=== PATIENT | female | born 2000 | race American Indian/Alaskan Native ===

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

== ENCOUNTER 2021-06-02 02:08 | Emergency (ER) | payer SELFPAY ==
[2021-06-02 03:02] VITALS: BP 105/68
--- NOTE | 2021-06-02 03:03 | Emergency Department Report ---
- General Chief Complaint: Wound/Laceration Stated Complaint: HEAD INJURY Source: patient Mode of arrival: Ambulatory Limitations: No Limitations - History of Present Illness Initial Comments: Patient is a nulliparous 20-year-old -[place] female with no past medical history presents to the ED with complaint of acute onset persistent bleeding painful right parietal scalp laceration wound after she tripped when going up the stairs and hit her head against the sharp edge of the door at home about 1 hour prior to arrival in the ED. Patient states that the bleeding at the moment is well controlled but at the beginning it was heavy and persistent. Patient states that she is up-to-date with all her tetanus vaccinations. Patient denies loss of consciousness, dizziness, syncope, seizures, shortness of breath, change in vision, nausea and vomiting, neck pain or fall. -: Sudden, hour(s) (1) Location: scalp (right parietal scalp small laceration) Place: home Patient Tetanus UTD: Yes Context: accidental, sharp object use Associated Symptoms: pain. denies: loss of feeling/numbness, suspect foreign body present, unable to move injured part, weakness followed by dizziness, nausea/vomiting, fever Treatments Prior to Arrival: cold therapy - Related Data Previous Rx's Medication Instructions Recorded Last Taken Type traMADoL [Ultram 50 MG tab] 50 mg PO Q6HR PRN #15 tablet 07/07/14 Unknown Rx Dicyclomine [Bentyl] 10 mg PO QID PRN #20 capsule 02/11/16 Unknown Rx Famotidine [Pepcid] 20 mg PO BID #10 tablet 02/11/16 Unknown Rx Ondansetron [Zofran Odt] 4 mg PO QID PRN #20 tab.rapdis 02/11/16 Unknown Rx Acetaminophen 500 mg PO Q8H PRN #30 capsule 09/05/17 Unknown Rx Albuterol Mdi (or & Nicu Only) 2 puff IH QID PRN #1 inhalation 09/05/17 Unknown Rx [ProAir HFA Inhaler] Azithromycin [Zithromax Z-SABI] 500 mg PO QDAY #6 tablet 09/05/17 Unknown Rx Ondansetron [Zofran Odt] 4 mg PO Q8HR PRN #12 tab.rapdis 09/05/17 Unknown Rx Phenylephrine/Dm/Acetaminop/GG 10 ml PO Q6H PRN #1 liquid 09/05/17 Unknown Rx [Mucinex Ocou-Gxk-Xbicmxaelz Lq] metroNIDAZOLE [Flagyl] 500 mg PO Q12HR #14 tab 03/18/18 Unknown Rx Prednisone [predniSONE 10 mg 10 mg PO .TAPER #1 tab.ds.pk 04/16/18 Unknown Rx (6-Day Pack, 21 Tabs)] diphenhydrAMINE [Benadryl CAP] 25 mg PO Q6HR PRN #20 capsule 04/16/18 Unknown Rx EPINEPHrine [Epipen 2-Sabi] 0.3 mg IM DAILY PRN #2 ml 04/24/18 Unknown Rx Famotidine [Pepcid] 20 mg PO BID #10 tablet 04/24/18 Unknown Rx Ondansetron [Zofran Odt] 4 mg PO Q8HR PRN #10 tab.rapdis 11/04/18 Unknown Rx Promethazine [Phenergan] 25 mg PO Q6HR PRN #10 tab 11/04/18 Unknown Rx Ibuprofen [Motrin 600 MG tab] 600 mg PO Q8H PRN #30 tablet 06/02/21 Unknown Rx cephALEXin [Keflex] 500 mg PO Q12HR #20 cap 06/02/21 Unknown Rx Allergies Allergy/AdvReac Type Severity Reaction Status Date / Time No Known Allergies Allergy Verified 11/04/18 12:47 ED Review of Systems ROS: Stated complaint: HEAD INJURY Other details as noted in HPI Constitutional: denies: chills, fever Eyes: denies: eye pain, eye discharge, vision change ENT: denies: ear pain, throat pain Respiratory: denies: cough, shortness of breath, wheezing Cardiovascular: denies: chest pain, palpitations Endocrine: no symptoms reported Gastrointestinal: denies: abdominal pain, nausea, vomiting, diarrhea Genitourinary: denies: urgency, dysuria, discharge Musculoskeletal: denies: back pain, joint swelling, arthralgia Skin: other (Bleeding small puncture wound on the right parietal scalp with localized tenderness). denies: rash, lesions Neurological: denies: headache, weakness, paresthesias Psychiatric: anxiety. denies: depression Hematological/Lymphatic: denies: easy bleeding, easy bruising ED Past Medical Hx - Past Medical History Previous Medical History?: No - Surgical History Past Surgical History?: No - Social History Smoking Status: Never Smoker Substance Use Type: None - Medications Home Medications: Home Medications Medication Instructions Recorded Confirmed Last Taken Type traMADoL [Ultram 50 MG tab] 50 mg PO Q6HR PRN #15 tablet 07/07/14 Unknown Rx Dicyclomine [Bentyl] 10 mg PO QID PRN #20 capsule 02/11/16 Unknown Rx Famotidine [Pepcid] 20 mg PO BID #10 tablet 02/11/16 Unknown Rx Ondansetron [Zofran Odt] 4 mg PO QID PRN #20 tab.rapdis 02/11/16 Unknown Rx Acetaminophen 500 mg PO Q8H PRN #30 capsule 09/05/17 Unknown Rx Albuterol Mdi (or & Nicu Only) 2 puff IH QID PRN #1 inhalation 09/05/17 Unknown Rx [ProAir HFA Inhaler] Azithromycin [Zithromax Z-SABI] 500 mg PO QDAY #6 tablet 09/05/17 Unknown Rx Ondansetron [Zofran Odt] 4 mg PO Q8HR PRN #12 tab.rapdis 09/05/17 Unknown Rx Phenylephrine/Dm/Acetaminop/GG 10 ml PO Q6H PRN #1 liquid 09/05/17 Unknown Rx [Mucinex Coxt-Tak-Dmhshrlrvz Lq] metroNIDAZOLE [Flagyl] 500 mg PO Q12HR #14 tab 03/18/18 Unknown Rx Prednisone [predniSONE 10 mg 10 mg PO .TAPER #1 tab.ds.pk 04/16/18 Unknown Rx (6-Day Pack, 21 Tabs)] diphenhydrAMINE [Benadryl CAP] 25 mg PO Q6HR PRN #20 capsule 04/16/18 Unknown Rx EPINEPHrine [Epipen 2-Sabi] 0.3 mg IM DAILY PRN #2 ml 04/24/18 Unknown Rx Famotidine [Pepcid] 20 mg PO BID #10 tablet 04/24/18 Unknown Rx Ondansetron [Zofran Odt] 4 mg PO Q8HR PRN #10 tab.rapdis 11/04/18 Unknown Rx Promethazine [Phenergan] 25 mg PO Q6HR PRN #10 tab 11/04/18 Unknown Rx Ibuprofen [Motrin 600 MG tab] 600 mg PO Q8H PRN #30 tablet 06/02/21 Unknown Rx cephALEXin [Keflex] 500 mg PO Q12HR #20 cap 06/02/21 Unknown Rx ED Physical Exam - General Limitations: No Limitations General appearance: alert, in no apparent distress - Head Head exam: Present: other (Palpable localized tenderness on right parietal scalp due to a small bleeding 1 cm puncture wound) - Eye Eye exam: Present: normal appearance, PERRL, EOMI Pupils: Present: normal accommodation - ENT ENT exam: Present: normal exam, normal orophraynx, mucous membranes moist, TM's normal bilaterally, normal external ear exam - Neck Neck exam: Present: normal inspection, full ROM - Respiratory Respiratory exam: Present: normal lung sounds bilaterally. Absent: respiratory distress, wheezes, rales, rhonchi, stridor, chest wall tenderness, accessory muscle use, decreased breath sounds, prolonged expiratory - Cardiovascular Cardiovascular Exam: Present: regular rate, normal rhythm, normal heart sounds. Absent: systolic murmur, diastolic murmur, rubs, gallop - GI/Abdominal GI/Abdominal exam: Present: soft, normal bowel sounds. Absent: tenderness, guarding, hyperactive bowel sounds, hypoactive bowel sounds - Extremities Exam Extremities exam: Present: normal inspection, full ROM, normal capillary refill - Back Exam Back exam: Present: normal inspection, full ROM. Absent: tenderness, CVA tenderness (R), CVA tenderness (L), muscle spasm, paraspinal tenderness - Neurological Exam Neurological exam: Present: alert, oriented X3, CN II-XII intact, normal gait, reflexes normal - Psychiatric Psychiatric exam: Present: normal affect, normal mood, anxious - Skin Skin exam: Present: warm, dry, intact, normal color, other (Bleeding 1 cm small puncture wound on the right parietal scalp with localized tenderness). Absent: rash - Laceration /Wound Repair Right Parietal Wound Location: head (Right parietal scalp laceration) Wound's Depth, Shape: superficial (1) Wound Explored: contaminated Irrigated w/ Saline (ccs): 200 Betadine Prep?: No Wound Debrided: extensive Wound Repaired With: sutures (Naheed, a total of 2) Layer Closure?: No Sterile Dressing Applied?: Yes Progress: The small puncture wound was cleaned thoroughly with normal saline and extensively debrided. The wound was closed with 2 naheed and the patient tolerated the procedure well. Patient was there after treated for pain with ibuprofen. Patient was discharged home on pain medications and prophylactic antibiotics and advised to follow-up with her primary care physician in 7 to 10 days for reevaluation. Patient is advised to return to the ED immediately if symptoms get worse or return to the ED or to her primary care physician in 8 to 10 days for naheed removal ED Medical Decision Making - Medical Decision Making This is a nulliparous 20-year-old -[place] female with no past medical history presents to the ED with complaint of acute onset persistent bleeding painful right parietal scalp laceration wound after she tripped when going up the stairs and hit her head against the sharp edge of the door at home about 1 h our prior to arrival in the ED. Patient states that the bleeding at the moment is well controlled but at the beginning it was heavy and persistent. Patient states that she is up-to-date with all her tetanus vaccinations. In the ED, patient is alert and oriented x3 and is not in any distress but appears to be in pain and anxious. Patient is hemodynamically stable. Patient was treated for pain in the ED and the right parietal scalp bleeding laceration was cleaned extensively with normal saline and stapled per protocol. Patient tolerated procedure well. On reevaluation, patient's pain is well controlled medications. Patient is hemodynamically stable, ambulatory in the ED, talking on the phone with her friends and laughing. Patient will discharge home on pain medication and prophylactic antibiotics and advised to follow-up with her primary care physician in 7 to 10 days for reevaluation or return to the ED immediately if symptoms get worse. Patient was also advised return to the ED or to her primary care physician in 8 to 10 days for naheed removal. - Differential Diagnosis Puncture wound; scalp laceration; abrasion; scalp contusion Critical care attestation.: If time is entered above; I have spent that time in minutes in the direct care of this critically ill patient, excluding procedure time. ED Disposition Clinical Impression: Contusion of scalp Qualifiers: Encounter type: initial encounter Qualified Code(s): S00.03XA - Contusion of scalp, initial encounter Scalp laceration Qualifiers: Encounter type: initial encounter Qualified Code(s): S01.01XA - Laceration without foreign body of scalp, initial encounter Puncture wound of scalp without foreign body Qualifiers: Encounter type: initial encounter Qualified Code(s): S01.03XA - Puncture wound without foreign body of scalp, initial encounter Disposition: 01 HOME / SELF CARE / HOMELESS Is pt being admited?: No Does the pt Need Aspirin: No Condition: Stable Instructions: Wound Infection, [id number], Facial or Scalp Contusion, [id number], Puncture Wound, [id number] Additional Instructions: Take medications with food, drink plenty of fluids and follow-up with your primary care physician in 7 to 10 days for reevaluation. Return to the ED immediately if symptoms get worse. Otherwise return to the ED or to your primary care physician in 8 to 10 days for naheed removal. Prescriptions: cephALEXin [Keflex] 500 mg PO Q12HR #20 cap Ibuprofen [Motrin 600 MG tab] 600 mg PO Q8H PRN #30 tablet PRN Reason: Pain Referrals: [facility] [Provider Group] - 7-10 days Time of Disposition: 03:10 Print Language: VINCENTIAN
[2021-06-02] MEDS ORDERED: ONDANSETRON 4 MG ODT TAB PO ONE (03:10)
[2021-06-02] MEDS ORDERED: IBUPROFEN 600 MG TAB PO ONE (03:10)
[2021-06-02] MEDS ORDERED: ACETAMINOPHEN 500 MG TAB PO ONE (03:10)
== END 2021-06-02 04:16 | disposition home or self-care (01) ==
LOC: ED 02:08
DX: S01.01XA Laceration without foreign body of scalp, initial encounter (principal); Z79.899 Other long term (current) drug therapy; W10.8XXA Fall (on) (from) other stairs and steps, initial encounter; Y93.89 Activity, other specified; Y92.89 Other specified places as the place of occurrence of the external cause; Y99.8 Other external cause status
CPT/HCPCS: 99282; Q0162

== ENCOUNTER 2021-06-16 18:25 | Emergency (ER) | payer SELFPAY ==
[2021-06-16 20:03] VITALS: BP 118/68
--- NOTE | 2021-06-16 20:13 | Emergency Department Report ---
ED General Adult HPI - General Chief complaint: Laceration/Recheck/Suture Stated complaint: SUTURES REMOVED FROM HEAD Time Seen by Provider: 06/16/21 20:09 Source: patient Mode of arrival: Ambulatory Limitations: No Limitations - History of Present Illness Initial comments: Patient is a 20-year-old female presents to emergency room with complaints of ne eding a staple removal. Patient had the naheed placed in the emergency department on 06/02/2021 after sustaining a laceration to the right frontal scalp. Patient denies any complications. She denies any drainage, fever, bleeding, increased pain, swelling, any other complications. She denies any allergies to medications. Patient states that she also went to the [facility] and was informed that she tested positive for chlamydia, she states that her other tests were negative, she states that she is not , she is requesting a prescription for chlamydia. She is not having any abdominal pain fever, vomiting or vaginal bleeding. - Related Data Previous Rx's Medication Instructions Recorded Last Taken Type traMADoL [Ultram 50 MG tab] 50 mg PO Q6HR PRN #15 tablet 07/07/14 Unknown Rx Dicyclomine [Bentyl] 10 mg PO QID PRN #20 capsule 02/11/16 Unknown Rx Famotidine [Pepcid] 20 mg PO BID #10 tablet 02/11/16 Unknown Rx Ondansetron [Zofran Odt] 4 mg PO QID PRN #20 tab.rapdis 02/11/16 Unknown Rx Acetaminophen 500 mg PO Q8H PRN #30 capsule 09/05/17 Unknown Rx Albuterol Mdi (or & Nicu Only) 2 puff IH QID PRN #1 inhalation 09/05/17 Unknown Rx [ProAir HFA Inhaler] Azithromycin [Zithromax Z-SABI] 500 mg PO QDAY #6 tablet 09/05/17 Unknown Rx Ondansetron [Zofran Odt] 4 mg PO Q8HR PRN #12 tab.rapdis 09/05/17 Unknown Rx Phenylephrine/Dm/Acetaminop/GG 10 ml PO Q6H PRN #1 liquid 09/05/17 Unknown Rx [Mucinex Goma-Uio-Adpsnqabno Lq] metroNIDAZOLE [Flagyl] 500 mg PO Q12HR #14 tab 03/18/18 Unknown Rx Prednisone [predniSONE 10 mg 10 mg PO .TAPER #1 tab.ds.pk 04/16/18 Unknown Rx (6-Day Pack, 21 Tabs)] diphenhydrAMINE [Benadryl CAP] 25 mg PO Q6HR PRN #20 capsule 04/16/18 Unknown Rx EPINEPHrine [Epipen 2-Sabi] 0.3 mg IM DAILY PRN #2 ml 04/24/18 Unknown Rx Famotidine [Pepcid] 20 mg PO BID #10 tablet 04/24/18 Unknown Rx Ondansetron [Zofran Odt] 4 mg PO Q8HR PRN #10 tab.rapdis 11/04/18 Unknown Rx Promethazine [Phenergan] 25 mg PO Q6HR PRN #10 tab 11/04/18 Unknown Rx Ibuprofen [Motrin 600 MG tab] 600 mg PO Q8H PRN #30 tablet 06/02/21 Unknown Rx cephALEXin [Keflex] 500 mg PO Q12HR #20 cap 06/02/21 Unknown Rx Doxycycline Hyclate [Doxycycline 100 mg PO BID 7 Days #14 tab 06/16/21 Unknown Rx Hyclate TAB] Allergies Allergy/AdvReac Type Severity Reaction Status Date / Time No Known Allergies Allergy Verified 06/16/21 20:03 ED Review of Systems ROS: Stated complaint: SUTURES REMOVED FROM HEAD Other details as noted in HPI Comment: All other systems reviewed and negative ED Past Medical Hx - Social History Smoking Status: Never Smoker Substance Use Type: None - Medications Home Medications: Home Medications Medication Instructions Recorded Confirmed Last Taken Type traMADoL [Ultram 50 MG tab] 50 mg PO Q6HR PRN #15 tablet 07/07/14 Unknown Rx Dicyclomine [Bentyl] 10 mg PO QID PRN #20 capsule 02/11/16 Unknown Rx Famotidine [Pepcid] 20 mg PO BID #10 tablet 02/11/16 Unknown Rx Ondansetron [Zofran Odt] 4 mg PO QID PRN #20 tab.rapdis 02/11/16 Unknown Rx Acetaminophen 500 mg PO Q8H PRN #30 capsule 09/05/17 Unknown Rx Albuterol Mdi (or & Nicu Only) 2 puff IH QID PRN #1 inhalation 09/05/17 Unknown Rx [ProAir HFA Inhaler] Azithromycin [Zithromax Z-SABI] 500 mg PO QDAY #6 tablet 09/05/17 Unknown Rx Ondansetron [Zofran Odt] 4 mg PO Q8HR PRN #12 tab.rapdis 09/05/17 Unknown Rx Phenylephrine/Dm/Acetaminop/GG 10 ml PO Q6H PRN #1 liquid 09/05/17 Unknown Rx [Mucinex Bgan-Eid-Cuejrmxwza Lq] metroNIDAZOLE [Flagyl] 500 mg PO Q12HR #14 tab 03/18/18 Unknown Rx Prednisone [predniSONE 10 mg 10 mg PO .TAPER #1 tab.ds.pk 04/16/18 Unknown Rx (6-Day Pack, 21 Tabs)] diphenhydrAMINE [Benadryl CAP] 25 mg PO Q6HR PRN #20 capsule 04/16/18 Unknown Rx EPINEPHrine [Epipen 2-Sabi] 0.3 mg IM DAILY PRN #2 ml 04/24/18 Unknown Rx Famotidine [Pepcid] 20 mg PO BID #10 tablet 04/24/18 Unknown Rx Ondansetron [Zofran Odt] 4 mg PO Q8HR PRN #10 tab.rapdis 11/04/18 Unknown Rx Promethazine [Phenergan] 25 mg PO Q6HR PRN #10 tab 11/04/18 Unknown Rx Ibuprofen [Motrin 600 MG tab] 600 mg PO Q8H PRN #30 tablet 06/02/21 Unknown Rx cephALEXin [Keflex] 500 mg PO Q12HR #20 cap 06/02/21 Unknown Rx Doxycycline Hyclate [Doxycycline 100 mg PO BID 7 Days #14 tab 06/16/21 Unknown Rx Hyclate TAB] ED Physical Exam - General Limitations: No Limitations General appearance: alert, in no apparent distress - Head Head exam: Present: other ([address] to the right frontal scalp, no erythema, no edema, no increased warmth, no drainage, no wound dehiscence) - Eye Eye exam: Present: EOMI - ENT ENT exam: Present: mucous membranes moist - Neurological Exam Neurological exam: Present: alert, oriented X3 - Psychiatric Psychiatric exam: Present: normal affect, normal mood - Skin Skin exam: Present: warm, dry ED Course Vital Signs 06/16/21 20:01 Temperature 98.6 F Pulse Rate 80 Respiratory 18 Rate Blood Pressure 118/68 O2 Sat by Pulse 99 Oximetry ED Medical Decision Making - Medical Decision Making Patient is a 20-year-old female presents to emergency room with complaints of needing a staple removal. Patient had the naheed placed in the emergency department on 06/02/2021 after sustaining a laceration to the right frontal scalp . Patient denies any complications. She denies any drainage, fever, bleeding, increased pain, swelling, any other complications. She denies any allergies to medications. Patient states that she also went to the [facility] and was informed that she tested positive for chlamydia, she states that her other tests were negative, she states that she is not , she is requesting a prescription for chlamydia. She is not having any abdominal pain fever, vomiting or vaginal bleeding. Vitals are normal. On exam:[address] to the right frontal scalp, no erythema, no edema, no increased warmth, no drainage, no wound dehiscence. Naheed were removed without any complications, no drainage, no bleeding, no wound dehiscence. Patient given prescription for doxycycline due to her positive outpatient chlamydia test. advised pt Please take medication as prescribed to completion. Please have any partners tested and treated as well. Avoid sexual intercourse. Follow-up with a primary care doctor. Return to emergency room for any new or worsening symptoms. Critical care attestation.: If time is entered above; I have spent that time in minutes in the direct care of this critically ill patient, excluding procedure time. ED Disposition Clinical Impression: Removal of naheed, Chlamydia Disposition: 01 HOME / SELF CARE / HOMELESS Is pt being admited?: No Does the pt Need Aspirin: No Condition: Stable Instructions: Wound Closure Removal, Care After, Chlamydia, Female Additional Instructions: Please take medication as prescribed to completion. Please have any partners tested and treated as well. Avoid sexual intercourse. Follow-up with a primary care doctor. Return to emergency room for any new or worsening symptoms. Prescriptions: Doxycycline Hyclate [Doxycycline Hyclate TAB] 100 mg PO BID 7 Days #14 tab Referrals: your, primary care doctor [Other] - 2-3 Days Forms: Work/School Release Form(ED) Time of Disposition: 20:12 Print Language: GREEK
== END 2021-06-16 20:25 | disposition home or self-care (01) ==
LOC: ED 18:25
DX: S01.01XD Laceration without foreign body of scalp, subsequent encounter (principal); Z79.899 Other long term (current) drug therapy; X58.XXXD Exposure to other specified factors, subsequent encounter
CPT/HCPCS: 99281

== ENCOUNTER 2022-05-21 19:07 | Emergency (ER) | payer OTHER ==
[2022-05-21 19:46] VITALS: BP 106/69
[2022-05-21 22:00] LABS: Basophils # (Auto) 0.1 K/mm3 (0.0-0.1); Eosinophils # (Auto) 0.1 K/mm3 (0.0-0.4); Hematocrit 42.8 % (30.3-42.9); Hemoglobin 14.9 gm/dl (10.1-14.3); Lymphocytes # (Auto) 1.8 K/mm3 (1.2-5.4); Mean Corpuscular HGB Conc 35 % (30-34); Mean Corpuscular Volume 97 fl (79-97); Monocytes # (Auto) 1.1 K/mm3 (0.0-0.8); Monocytes % (Auto) 12.3 % (0.0-7.3); Platelet Count 241 K/mm3 (140-440)
[2022-05-22 04:21] LABS: Bilirubin,Urine Negative (Negative); Blood,Urine 2+ (Negative); Color,Urine DK YELLOW (Yellow)
--- NOTE | 2022-05-22 04:23 | Ultrasound Report ---
OB ultrasound INDICATION: Vaginal bleeding FINDINGS: Single live intrauterine . Rosanky-rump length measures 8 mm measures 6 weeks 5 days . No free fluid is seen. No second pole appear normal. Ovaries are normal in size. Uterus measu res 8.7 x 4.8 x 4.3 cm. heart rate 138 bpm. IMPRESSION: Single live intrauterine measuring 6 weeks 5 days by ultrasound. heart rate 138 bpm Signer Name: Adrián Covington MD Signed: 05/22/2022 4:19 AM Workstation Name: [id number]
[2022-05-22 04:45] LABS: Bacteria,Urine 2+ /HPF (Negative); Hyaline Casts,Urine 1 /LPF; Mucus,Urine 3+ /HPF
--- NOTE | 2022-05-22 05:01 | Emergency Department Report ---
ED Female HPI - General Chief complaint: Vaginal Bleeding Stated complaint: 7WKS /BLEEDING Time Seen by Provider: 05/22/22 02:12 Source: patient Mode of arrival: Ambulatory Limitations: No Limitations - History of Present Illness Initial comments: 21-year-old 6-7-week female reports emerged [place] complaining of vaginal bleeding with cramping and occasional clots over the last couple days. Reports no nausea, no vomiting, no fever, chills, sweats MD Complaint: vaginal bleeding -: Gradual Location: suprapubic Radiation: suprapubic Severity: moderate Quality: cramping Improves with: none Worsens with: none Are you Now?: Yes Associated Symptoms: vaginal bleeding - Related Data Previous Rx's Medication Instructions Recorded Last Taken Type traMADoL [Ultram 50 MG tab] 50 mg PO Q6HR PRN #15 tablet 07/07/14 Unknown Rx Dicyclomine [Bentyl] 10 mg PO QID PRN #20 capsule 02/11/16 Unknown Rx Famotidine [Pepcid] 20 mg PO BID #10 tablet 02/11/16 Unknown Rx Ondansetron [Zofran Odt] 4 mg PO QID PRN #20 tab.rapdis 02/11/16 Unknown Rx Acetaminophen 500 mg PO Q8H PRN #30 capsule 09/05/17 Unknown Rx Albuterol Mdi (or & Nicu Only) 2 puff IH QID PRN #1 inhalation 09/05/17 Unknown Rx [ProAir HFA Inhaler] Azithromycin [Zithromax Z-SABI] 500 mg PO QDAY #6 tablet 09/05/17 Unknown Rx Ondansetron [Zofran Odt] 4 mg PO Q8HR PRN #12 tab.rapdis 09/05/17 Unknown Rx Phenylephrine/Dm/Acetaminop/GG 10 ml PO Q6H PRN #1 liquid 09/05/17 Unknown Rx [Mucinex Vrti-Qcr-Ffjhdsrqvi Lq] metroNIDAZOLE [Flagyl] 500 mg PO Q12HR #14 tab 03/18/18 Unknown Rx Prednisone [predniSONE 10 mg 10 mg PO .TAPER #1 tab.ds.pk 04/16/18 Unknown Rx (6-Day Pack, 21 Tabs)] diphenhydrAMINE [Benadryl CAP] 25 mg PO Q6HR PRN #20 capsule 04/16/18 Unknown Rx EPINEPHrine [Epipen 2-Sabi] 0.3 mg IM DAILY PRN #2 ml 04/24/18 Unknown Rx Famotidine [Pepcid] 20 mg PO BID #10 tablet 04/24/18 Unknown Rx Ondansetron [Zofran Odt] 4 mg PO Q8HR PRN #10 tab.rapdis 11/04/18 Unknown Rx Promethazine [Phenergan] 25 mg PO Q6HR PRN #10 tab 11/04/18 Unknown Rx Ibuprofen [Motrin 600 MG tab] 600 mg PO Q8H PRN #30 tablet 06/02/21 Unknown Rx cephALEXin [Keflex] 500 mg PO Q12HR #20 cap 06/02/21 Unknown Rx Doxycycline Hyclate [Doxycycline 100 mg PO BID 7 Days #14 tab 06/16/21 Unknown Rx Hyclate TAB] Allergies Allergy/AdvReac Type Severity Reaction Status Date / Time No Known Allergies Allergy Verified 06/16/21 20:03 ED Review of Systems ROS: Stated complaint: 7WKS /BLEEDING Other details as noted in HPI Comment: All other systems reviewed and negative ED Past Medical Hx - Social History Smoking Status: Never Smoker Substance Use Type: None - Medications Home Medications: Home Medications Medication Instructions Recorded Confirmed Last Taken Type traMADoL [Ultram 50 MG tab] 50 mg PO Q6HR PRN #15 tablet 07/07/14 Unknown Rx Dicyclomine [Bentyl] 10 mg PO QID PRN #20 capsule 02/11/16 Unknown Rx Famotidine [Pepcid] 20 mg PO BID #10 tablet 02/11/16 Unknown Rx Ondansetron [Zofran Odt] 4 mg PO QID PRN #20 tab.rapdis 02/11/16 Unknown Rx Acetaminophen 500 mg PO Q8H PRN #30 capsule 09/05/17 Unknown Rx Albuterol Mdi (or & Nicu Only) 2 puff IH QID PRN #1 inhalation 09/05/17 Unknown Rx [ProAir HFA Inhaler] Azithromycin [Zithromax Z-SABI] 500 mg PO QDAY #6 tablet 09/05/17 Unknown Rx Ondansetron [Zofran Odt] 4 mg PO Q8HR PRN #12 tab.rapdis 09/05/17 Unknown Rx Phenylephrine/Dm/Acetaminop/GG 10 ml PO Q6H PRN #1 liquid 09/05/17 Unknown Rx [Mucinex Rhhf-Ebn-Mrjuvdgqhk Lq] metroNIDAZOLE [Flagyl] 500 mg PO Q12HR #14 tab 03/18/18 Unknown Rx Prednisone [predniSONE 10 mg 10 mg PO .TAPER #1 tab.ds.pk 04/16/18 Unknown Rx (6-Day Pack, 21 Tabs)] diphenhydrAMINE [Benadryl CAP] 25 mg PO Q6HR PRN #20 capsule 04/16/18 Unknown Rx EPINEPHrine [Epipen 2-Sabi] 0.3 mg IM DAILY PRN #2 ml 04/24/18 Unknown Rx Famotidine [Pepcid] 20 mg PO BID #10 tablet 04/24/18 Unknown Rx Ondansetron [Zofran Odt] 4 mg PO Q8HR PRN #10 tab.rapdis 11/04/18 Unknown Rx Promethazine [Phenergan] 25 mg PO Q6HR PRN #10 tab 11/04/18 Unknown Rx Ibuprofen [Motrin 600 MG tab] 600 mg PO Q8H PRN #30 tablet 06/02/21 Unknown Rx cephALEXin [Keflex] 500 mg PO Q12HR #20 cap 06/02/21 Unknown Rx Doxycycline Hyclate [Doxycycline 100 mg PO BID 7 Days #14 tab 06/16/21 Unknown Rx Hyclate TAB] ED Physical Exam - General Limitations: No Limitations General appearance: alert, in no apparent distress - Head Head exam: Present: atraumatic, normocephalic - Eye Eye exam: Present: normal appearance - ENT ENT exam: Present: normal exam, mucous membranes moist - Neck Neck exam: Present: normal inspection, full ROM - Respiratory Respiratory exam: Present: normal lung sounds bilaterally. Absent: respiratory distress - Cardiovascular Cardiovascular Exam: Present: regular rate, normal rhythm. Absent: systolic murmur, diastolic murmur, rubs, gallop - GI/Abdominal GI/Abdominal exam: Present: soft, normal bowel sounds - Extremities Exam Extremities exam: Present: normal inspection - Back Exam Back exam: Present: normal inspection - Neurological Exam Neurological exam: Present: alert, oriented X3 - Psychiatric Psychiatric exam: Present: normal affect, normal mood - Skin Skin exam: Present: warm, dry, intact, normal color. Absent: rash ED Course Vital Signs 05/21/22 19:45 Temperature 98.8 F Pulse Rate 82 Respiratory 18 Rate Blood Pressure 106/69 O2 Sat by Pulse 99 Oximetry ED Medical Decision Making - Lab Data Result diagrams: 05/21/22 20:11 Critical care attestation.: If time is entered above; I have spent that time in minutes in the direct care of this critically ill patient, excluding procedure time. ED Disposition Disposition: HOME / SELF CARE / HOMELESS Condition: Stable Instructions: Threatened Miscarriage, [id number]-yl-[id number] Referrals: [facility] [Provider Group] - 3-5 Days
== END 2022-05-23 11:19 | disposition home or self-care (01) ==
LOC: ED 19:07
DX: O46.91 Antepartum hemorrhage, unspecified, first trimester (principal); Z3A.01 Less than 8 weeks gestation of pregnancy
CPT/HCPCS: 36415; 76801; 81001; 84702; 84703; 85025; 86900; 86901; 87086; 99283; 99284

== ENCOUNTER 2022-06-29 22:51 | Emergency (ER) | payer SELFPAY ==
[2022-06-29 22:59] VITALS: BP 109/54
[2022-06-30 02:15] LABS: Color,Urine Straw (Yellow)
[2022-06-30 02:18] LABS: Bacteria,Urine 4+ /HPF (Negative); Mucus,Urine FEW /HPF
--- NOTE | 2022-06-30 06:47 | Emergency Department Report ---
ED Female HPI - General Chief complaint: Urogenital-Female Stated complaint: BURNING URINATION Time Seen by Provider: 06/30/22 06:44 Source: patient Mode of arrival: Ambulatory Limitations: No Limitations - History of Present Illness Initial comments: 22-year-old female status post miscarriage was diagnosed with a UTI during this process but unable to tolerate the medication due to nausea and vomiting. The urinary symptoms have reemerged and she began having some increased urinary frequency and urgency with burning and feels he has returned and seeks treatment. Reports no hemoptysis no hematemesis medic easy, no hematuria. Reports no abdominal pain no no pelvic pain or lower extremity swelling no no vaginal sores or rashes MD Complaint: dysuria Severity: mild Consistency: constant Improves with: none Worsens with: none Are you Now?: No Associated Symptoms: dysuria - Related Data Previous Rx's Medication Instructions Recorded Last Taken Type traMADoL [Ultram 50 MG tab] 50 mg PO Q6HR PRN #15 tablet 07/07/14 Unknown Rx Dicyclomine [Bentyl] 10 mg PO QID PRN #20 capsule 02/11/16 Unknown Rx Famotidine [Pepcid] 20 mg PO BID #10 tablet 02/11/16 Unknown Rx Ondansetron [Zofran Odt] 4 mg PO QID PRN #20 tab.rapdis 02/11/16 Unknown Rx Acetaminophen 500 mg PO Q8H PRN #30 capsule 09/05/17 Unknown Rx Albuterol Mdi (or & Nicu Only) 2 puff IH QID PRN #1 inhalation 09/05/17 Unknown Rx [ProAir HFA Inhaler] Azithromycin [Zithromax Z-SABI] 500 mg PO QDAY #6 tablet 09/05/17 Unknown Rx Ondansetron [Zofran Odt] 4 mg PO Q8HR PRN #12 tab.rapdis 09/05/17 Unknown Rx Phenylephrine/Dm/Acetaminop/GG 10 ml PO Q6H PRN #1 liquid 09/05/17 Unknown Rx [Mucinex Ccfw-Wtn-Vkfsqtybbs Lq] metroNIDAZOLE [Flagyl] 500 mg PO Q12HR #14 tab 03/18/18 Unknown Rx Prednisone [predniSONE 10 mg 10 mg PO .TAPER #1 tab.ds.pk 04/16/18 Unknown Rx (6-Day Pack, 21 Tabs)] diphenhydrAMINE [Benadryl CAP] 25 mg PO Q6HR PRN #20 capsule 04/16/18 Unknown Rx EPINEPHrine [Epipen 2-Sabi] 0.3 mg IM DAILY PRN #2 ml 04/24/18 Unknown Rx Famotidine [Pepcid] 20 mg PO BID #10 tablet 04/24/18 Unknown Rx Ondansetron [Zofran Odt] 4 mg PO Q8HR PRN #10 tab.rapdis 11/04/18 Unknown Rx Promethazine [Phenergan] 25 mg PO Q6HR PRN #10 tab 11/04/18 Unknown Rx Ibuprofen [Motrin 600 MG tab] 600 mg PO Q8H PRN #30 tablet 06/02/21 Unknown Rx cephALEXin [Keflex] 500 mg PO Q12HR #20 cap 06/02/21 Unknown Rx Doxycycline Hyclate [Doxycycline 100 mg PO BID 7 Days #14 tab 06/16/21 Unknown Rx Hyclate TAB] Nitrofurantoin Hoke/M-Cryst 100 mg PO Q12HR #20 capsule 06/30/22 Unknown Rx [Macrobid CAP] Phenazopyridine [Pyridium] 200 mg PO TID #9 tab 06/30/22 Unknown Rx Allergies Allergy/AdvReac Type Severity Reaction Status Date / Time No Known Allergies Allergy Verified 06/16/21 20:03 ED Review of Systems ROS: Stated complaint: BURNING URINATION Other details as noted in HPI Comment: All other systems reviewed and negative ED Past Medical Hx - Past Medical History Previous Medical History?: No - Surgical History Past Surgical History?: No - Social History Smoking Status: Never Smoker Substance Use Type: None - Medications Home Medications: Home Medications Medication Instructions Recorded Confirmed Last Taken Type traMADoL [Ultram 50 MG tab] 50 mg PO Q6HR PRN #15 tablet 07/07/14 Unknown Rx Dicyclomine [Bentyl] 10 mg PO QID PRN #20 capsule 02/11/16 Unknown Rx Famotidine [Pepcid] 20 mg PO BID #10 tablet 02/11/16 Unknown Rx Ondansetron [Zofran Odt] 4 mg PO QID PRN #20 tab.rapdis 02/11/16 Unknown Rx Acetaminophen 500 mg PO Q8H PRN #30 capsule 09/05/17 Unknown Rx Albuterol Mdi (or & Nicu Only) 2 puff IH QID PRN #1 inhalation 09/05/17 Unknown Rx [ProAir HFA Inhaler] Azithromycin [Zithromax Z-SABI] 500 mg PO QDAY #6 tablet 09/05/17 Unknown Rx Ondansetron [Zofran Odt] 4 mg PO Q8HR PRN #12 tab.rapdis 09/05/17 Unknown Rx Phenylephrine/Dm/Acetaminop/GG 10 ml PO Q6H PRN #1 liquid 09/05/17 Unknown Rx [Mucinex Amfr-Zyc-Vsdyxvmaye Lq] metroNIDAZOLE [Flagyl] 500 mg PO Q12HR #14 tab 03/18/18 Unknown Rx Prednisone [predniSONE 10 mg 10 mg PO .TAPER #1 tab.ds.pk 04/16/18 Unknown Rx (6-Day Pack, 21 Tabs)] diphenhydrAMINE [Benadryl CAP] 25 mg PO Q6HR PRN #20 capsule 04/16/18 Unknown Rx EPINEPHrine [Epipen 2-Sabi] 0.3 mg IM DAILY PRN #2 ml 04/24/18 Unknown Rx Famotidine [Pepcid] 20 mg PO BID #10 tablet 04/24/18 Unknown Rx Ondansetron [Zofran Odt] 4 mg PO Q8HR PRN #10 tab.rapdis 11/04/18 Unknown Rx Promethazine [Phenergan] 25 mg PO Q6HR PRN #10 tab 11/04/18 Unknown Rx Ibuprofen [Motrin 600 MG tab] 600 mg PO Q8H PRN #30 tablet 06/02/21 Unknown Rx cephALEXin [Keflex] 500 mg PO Q12HR #20 cap 06/02/21 Unknown Rx Doxycycline Hyclate [Doxycycline 100 mg PO BID 7 Days #14 tab 06/16/21 Unknown Rx Hyclate TAB] Nitrofurantoin Hoke/M-Cryst 100 mg PO Q12HR #20 capsule 06/30/22 Unknown Rx [Macrobid CAP] Phenazopyridine [Pyridium] 200 mg PO TID #9 tab 06/30/22 Unknown Rx ED Physical Exam - General Limitations: No Limitations General appearance: alert, in no apparent distress - Head Head exam: Present: atraumatic, normocephalic - Eye Eye exam: Present: normal appearance - ENT ENT exam: Present: mucous membranes moist - Neck Neck exam: Present: normal inspection - Respiratory Respiratory exam: Present: normal lung sounds bilaterally. Absent: respiratory distress - Cardiovascular Cardiovascular Exam: Present: regular rate, normal rhythm. Absent: systolic mu rmur, diastolic murmur, rubs, gallop - GI/Abdominal GI/Abdominal exam: Present: soft, normal bowel sounds - Extremities Exam Extremities exam: Present: normal inspection - Back Exam Back exam: Present: normal inspection - Neurological Exam Neurological exam: Present: alert, oriented X3 - Psychiatric Psychiatric exam: Present: normal affect, normal mood - Skin Skin exam: Present: warm, dry, intact, normal color. Absent: rash ED Course Vital Signs 06/29/22 22:58 Temperature 98.5 F Pulse Rate 70 Respiratory 14 Rate Blood Pressure 109/54 [Left] O2 Sat by Pulse 98 Oximetry ED Medical Decision Making - Medical Decision Making This patient presents to the emergency department with symptoms consistent with acute uncomplicated cystitis. No systemic symptoms. Not septic. She is well- appearing. Low suspicion for acute pyelonephritis given the lack of fever, CVA tenderness, or systemic features. Low suspicion for for kidney stone or infected stone. Not in age range for and her history and and presentation are complicated. No no indications for labs or imaging at this time. Critical care attestation.: If time is entered above; I have spent that time in minutes in the direct care of this critically ill patient, excluding procedure time. ED Disposition Clinical Impression: UTI (urinary tract infection) Disposition: HOME / SELF CARE / HOMELESS Is pt being admited?: No Does the pt Need Aspirin: No Condition: Stable Instructions: Urinary Tract Infection, Adult Prescriptions: Nitrofurantoin Hoke/M-Cryst [Macrobid CAP] 100 mg PO Q12HR #20 capsule Phenazopyridine [Pyridium] 200 mg PO TID #9 tab Referrals: [facility] [Provider Group] - 3-5 Days
== END 2022-06-30 06:55 | disposition home or self-care (01) ==
LOC: ED 22:51
DX: N39.0 Urinary tract infection, site not specified (principal)
CPT/HCPCS: 81001; 99283